=== PATIENT | female | born 1980 | race Caucasian/White ===

== ENCOUNTER 2024-11-16 12:57 | Outpatient (CLI) | payer OTHER, SELFPAY | END 2024-11-16 12:58 | disposition home or self-care (01) | LOC: NFLDREF 11-19 09:04 | PROVIDERS: PCP Physician Assistant Medical; Referring Provider Physician Assistant Medical; Visit Provider Emergency Medicine | DX: R30.0 Dysuria (principal); N76.0 Acute vaginitis | CPT/HCPCS: 87086 ==